=== PATIENT | female | born 1990 | race Asian ===

== ENCOUNTER 2017-05-03 02:34 | Emergency (ER) | payer OTHER ==
[2017-05-03] MEDS ORDERED: Alum Hydroxide/Mag Hydroxide 15 ML, Lidocaine 2% 15 ML PO ONE ×2 (03:21)
[2017-05-03] MEDS ORDERED: Ondansetron 4 MG Tab.DIS PO ONE ×2 (03:25→03:57)
--- NOTE | 2017-05-03 03:28 | EDM.PDOC ---
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 No fever. Is reportedly 17 weeks . Has no idea what her blood type is. Normal BM's. Vomited before arrival. No vaginal bleeding. No cramping component to the pain. No tx prior to arrival. Onset: Today Onset Date: 05/03/17 Onset Time: 00:00 Duration: Hour(s): Location: Reports: Abdomen Quality: Reports: Ache Severity: Moderate Improves with: Reports: None Worsens with: Reports: None Context: Reports: Other (late 1st trimester IUP) Associated Symptoms: Reports: Nausea/Vomiting. 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 Denies: Black Stool, Bloody Stool, Constipation, Diarrhea, Hematemesis, Hematochezia : Reports: No Symptoms Musculoskeletal: Reports: No Symptoms Skin: Reports: No Symptoms Neurological: Reports: No Symptoms Psychiatric: Reports: No Symptoms ED EXAM, GI/ABD - Physical Exam Exam: See Below Exam Limited By: No Limitations General Appearance: Alert, WD/WN, No Apparent Distress Eyes: Bilateral: Normal Appearance Ears: Normal External Exam, Normal Canal, Hearing Grossly Normal Nose: Normal Inspection, Normal Mucosa, No Blood Throat/Mouth: Normal Inspection, Normal Lips, Normal Voice, No Airway Compromise Head: Atraumatic, Normocephalic Neck: Normal Inspection Respiratory/Chest: No Respiratory Distress, Lungs Clear, Normal Breath Sounds, No Accessory Muscle Use Cardiovascular: Regular Rate, Rhythm GI/Abdominal Exam: Normal Bowel Sounds, Soft, Tender (umbilical tenderness and epigastric), Other (gravid uterus) Back Exam: Normal Inspection. No: CVA Tenderness (R), CVA Tenderness (L) Extremities: Normal Inspection, Normal Range of Motion, Non-Tender, No Pedal Edema Neurological: Alert, Oriented, CN II-XII Intact, Normal Cognition, No Motor/ Sensory Deficits Psychiatric: Normal Affect, Normal Mood Skin Exam: Warm, Dry, Intact, Normal Color, No Rash Lymphatic: No Adenopathy Course - Vital Signs Text/Narrative:: Epigastric pain better after GI cocktail, but not the umbilical pain. [facility] - Orders/Labs/Meds Orders: Active Orders 24 hr Category Date Time Status CULTURE URINE [RM] Stat Lab 05/03/17 03:47 Ordered Labs: Laboratory Tests 05/03/17 Range/Units 03:04 Urine Color Yellow (YELLOW) Urine Appearance Slightly cloudy (CLEAR) Urine pH 5.0 (5.0-6.5) Ur Specific [place] 1.020 (1.010-1.025) Urine Protein Negative (NEGATIVE) mg/dL Urine Glucose (UA) Normal (NEGATIVE) mg/dL Urine Ketones Negative (NEGATIVE) mg/dL Urine Occult Blood Negative (NEGATIVE) Urine Nitrite Negative (NEGATIVE) Urine Bilirubin Small H (NEGATIVE) Urine Urobilinogen Normal (NEGATIVE) mg/dL Ur Leukocyte Esterase Large H (NEGATIVE) Urine RBC 0-5 (0) Urine WBC 5-10 (0) Ur Squamous Epith Cells Many H (NS,R,O) Urine Bacteria Few H (NS) Meds: Medications Discontinued Medications Generic Name Dose Route Start Last Admin Trade Name Vinay PRN Reason Stop Dose Admin Acetaminophen 650 mg 05/03/17 03:46 Tylenol PO 05/03/17 03:47 NOW ONE Cephalexin 250 mg 05/03/17 03:48 Keflex PO 05/03/17 03:49 ONETIME ONE Al Hydroxide/Mg Hydroxide 15 0 ml 05/03/17 03:21 05/03/17 03:31 ml/ Lidocaine HCl 15 ml PO 05/03/17 03:22 15 ml ONETIME ONE Administration Ondansetron HCl 4 mg 05/03/17 03:25 05/03/17 03:30 Zofran Odt PO 05/03/17 03:26 4 mg ONETIME ONE Administration Departure - Departure Time of Disposition: 04:00 Disposition: Home, Self-Care 01 Condition: Fair Clinical Impression: Normal first in second trimester, Cystitis, Umbilical pain Gastritis Qualifiers: Gastritis type: unspecified gastritis Chronicity: acute Gastritis bleeding: without bleeding Qualified Code(s): K29.00 - Acute gastritis without bleeding - Discharge Information Referrals: PCP,Not In Area [Primary Care Provider] - Forms: ED Department Discharge - My Orders Last 24 Hours: My Active Orders 05/03/17 03:47 CULTURE URINE [RM] Stat - Assessment/Plan Last 24 Hours: My Active Orders 05/03/17 03:47 CULTURE URINE [RM] Stat
[2017-05-03] MEDS ORDERED: Acetaminophen 325 MG Tab PO ONE (03:46)
[2017-05-03] MEDS ORDERED: Cephalexin 250 MG Cap PO ONE (03:48)
== END 2017-05-03 04:10 | disposition home or self-care (01) ==
LOC: FB.ED 02:34 → FB.OBCHECK 02:34 → FB.OB 02:36 → FB.OBCHECK 02:36 → FB.OB 02:36 → EDSTATUS 02:47 → FB.ED 04:10
DX: O99.612 Diseases of the digestive system complicating pregnancy, second trimester (principal); K29.00 Acute gastritis without bleeding; O23.12 Infections of bladder in pregnancy, second trimester; Z3A.17 17 weeks gestation of pregnancy
CPT/HCPCS: 81001; 87086; 99283; A9270